=== PATIENT | female | born 1945 | race Caucasian/White ===

== ENCOUNTER 2019-04-18 02:09 | Inpatient (IN) | payer OTHER ==
[2019-04-18 02:31] LABS: PLATELET COUNT 259 10^3/uL (150-400)
--- NOTE | 2019-04-18 02:48 | EDPHY ---
H & P Stated Complaint: chest pain Time Seen by Provider: 04/18/19 02:12 HPI/ROS: HPI The patient presents with chest pain which is in her mid chest and feels like a burning sensation which began at about 4:00 p.m. Today while seated. Her symptoms came on slowly and have gotten progressively worse. She has been unable to sleep because of them. She states that her pain is worse whenever she eats something. She has had nausea without vomiting. She has not had any shortness of breath, dizziness, diaphoresis. She was started on clindamycin about 4 days ago for a dental infection and she believes that this has caused her heartburn. She does take Protonix 40 mg twice daily. She is brought in by ambulance and paramedics have given aspirin as well as 1 dose of nitroglycerin without any improvement in her symptoms. REVIEW OF SYSTEMS 10 systems were reviewed and negative with the exception of the elements mentioned in the history of present illness. PMHx: Type 1 diabetes, diastolic heart disease, CAD status post CABG on Plavix Soc Hx: Resides at [facility] PHYSICAL General Appearance: Alert, no distress Eyes: Pupils equal and round no pallor or injection ENT, Mouth: Mucous membranes moist Respiratory: There are no retractions, lungs are clear to auscultation Cardiovascular: Murmur present, Regular rate and rhythm Gastrointestinal: Abdomen is soft and non-tender, no masses, bowel sounds normal Neurological: A&O, moves all extremities Skin: Warm and dry, no rashes Musculoskeletal: Neck is supple non tender Extremities: Left BKA Psychiatric: Patient is oriented X 3, there is no agitation Source: Patient, EMS Exam Limitations: No limitations - Personal History Current Tetanus Diphtheria and Acellular Pertussis (TDAP): Yes - Medical/Surgical History Hx Chronic Respiratory Disease: Yes Hx Diabetes: Yes Hx Cardiac Disease: Yes Hx Renal Disease: No Hx Cirrhosis: No Hx Alcoholism: No Hx HIV/AIDS: No Hx Splenectomy or Spleen Trauma: No Other PMH: DM1, hyperparathyroidism, depression, chronic pain, hypohyroiism, hyperlipidemia, anxiety, heart disease, Diastolic heart failure, PVD, convulsions, Pulmonary HTN, - Social History Smoking Status: Never smoked Constitutional: Initial Vital Signs Temperature (C) 36.7 C 04/18/19 02:14 Heart Rate 94 04/18/19 02:14 Respiratory Rate 16 04/18/19 02:14 Blood Pressure 145/78 H 04/18/19 02:14 O2 Sat (%) 98 04/18/19 02:14 O2 Delivery Mode Nasal Cannula O2 (L/minute) 3 Allergies/Adverse Reactions: cilastatin sodium [From Primaxin] Allergy (Verified 04/18/19 02:14) ciprofloxacin Allergy (Verified 04/18/19 02:14) imipenem [From Primaxin] Allergy (Verified 04/18/19 02:14) metoclopramide Allergy (Verified 04/18/19 02:14) nitrofurantoin Allergy (Verified 04/18/19 02:14) oxycodone Allergy (Verified 04/18/19 02:14) Penicillins Allergy (Verified 04/18/19 02:14) Sulfonylureas Allergy (Verified 04/18/19 02:14) vancomycin Allergy (Verified 04/18/19 02:14) Home Medications: Medication Instructions Recorded ARIPiprazole [Abilify 5 mg (*)] 2.5 mg PO DAILY 04/18/19 Acetaminophen [Tylenol 325mg (*)] 650 mg PO DAILY PRN 04/18/19 Acetaminophen [Tylenol 325mg (*)] 650 mg PO TID 04/18/19 Albuterol [Proventil Inhaler HFA 2 puffs IH Q4 PRN 04/18/19 (*)] Aspirin [Aspirin 81mg (*)] 81 mg PO DAILY 04/18/19 Atorvastatin Calcium [Lipitor 40 40 mg PO HS 04/18/19 mg (*)] Bisacodyl [Dulcolax] 10 mg RC DAILY PRN 04/18/19 Clindamycin HCl [Clindamycin] 300 mg PO Q6HRS 04/18/19 Clopidogrel Bisulfate [Plavix (*)] 75 mg PO DAILY 04/18/19 Dextrose Oral Gel [Glucose Gel (*)] 15 gm PO BID PRN 04/18/19 Ergocalciferol [Vitamin D2 (*)] 50,000 unit PO FR 04/18/19 Furosemide [Lasix 80 MG (*)] 80 mg PO DAILY14 04/18/19 Furosemide [Lasix 80 MG (*)] 120 mg PO DAILY 04/18/19 Glucagon,Human Recombinant 1 mg IJ AD PRN 04/18/19 [Glucagon Emergency Kit] Herbals/Supplements -Info Only 1 ea PO DAILY 04/18/19 Insulin Glargine [Lantus] 3 unit SC DAILY 04/18/19 Insulin Glargine [Lantus] 7 unit SC HS 04/18/19 Insulin Lispro [Humalog] 0 unit SQ TIDMEAL 04/18/19 Isosorbide Mononitrate [Isosorbide 120 mg PO DAILY 04/18/19 Mononitrate ER] LORazepam [Ativan (*)] 0.25 mg PO BID 04/18/19 LORazepam [Ativan (*)] 0.5 mg PO DAILY PRN 04/18/19 Levothyroxine [Synthroid 88 mcg 88 mcg PO DAILY06 04/18/19 (*)] Lidocaine 5% [Lidocaine 5% Oint] 1 shoaib TP DAILY PRN 04/18/19 Magnesium Citrate [Magnesium 148 ml PO DAILY PRN 04/18/19 Citrate 300 ml (*)] Magnesium Hydroxide [Milk of 30 ml PO DAILY PRN 04/18/19 Magnesia] Metoprolol Tartrate [Lopressor 25 12.5 mg PO BID 04/18/19 mg (*)] Multivitamins W-Minerals [Thera M 1 each PO DAILY 04/18/19 Plus Tablet (*)] Nitroglycerin [Nitrostat 0.4 mg 0.4 mg SL Q5M PRN 04/18/19 (*)] Ondansetron HCl [Zofran] 4 mg PO Q6HRS PRN 04/18/19 Oxymetazoline HCl [Afrin Nasal 2 sprays [place] MWF 04/18/19 [place]] Pantoprazole Sodium [Protonix 40mg 40 mg PO BID 04/18/19 (*)] Polyethylene Glycol 3350 [Miralax 17 gm PO BID 04/18/19 17 gm (*)] Polyethylene Glycol 3350 [Miralax 17 gm PO DAILY PRN 04/18/19 17 gm (*)] Potassium Cl [Klor-Con 20 meq (*)] 30 meq PO BID 04/18/19 Sennosides [Senna Lax] 17.2 mg PO BID 04/18/19 Simethicone [Gas Relief] 80 mg PO TID PRN 04/18/19 Tamsulosin HCl [Flomax 0.4 MG (*)] 0.4 mg PO HS 04/18/19 Tears/Dextran 70/Hypromellose 1 drop EACHEYE BID 04/18/19 [Natural Balance Tears (*)] Tears/Dextran 70/Hypromellose 1 drop EACHEYE QID PRN 04/18/19 [Natural Balance Tears (*)] Venlafaxine Xr [Effexor Xr 75MG 225 mg PO DAILY 04/18/19 (*)] morphINE SR [MS Contin/Oramorph SR 30 mg PO BID 04/18/19 30 mg (*)] oxyCODONE IR [Oxycodone Ir (*)] 5 mg PO QID 04/18/19 traZODone [traZODONE 50MG (*)] 50 mg PO HS 04/18/19 Medical Decision Making - Diagnostics EKG Interpretation: EKG: Complete interpretation has been separately recorded in the [facility] archive. Summary impression: No ST segment change Imaging Results: Imaging Impressions Chest X-Ray 04/18/19 02:13 Impression: 1. Bilateral lower lobe atelectasis versus pneumonia. 2. Chronic bronchitis/airways disease. Chest x-ray single view shows scarring at bilateral lung bases, interpreted by me, radiology interpretation is pending. Imaging: I viewed and interpreted images myself Differential Diagnosis: This is a 73-year-old female with history of type 1 diabetes, CAD status post CABG, diastolic heart disease who presents brought in by ambulance from her shelter facility for chest pain since about 4:00 p.m. Yesterday, worse with meals. Here, vital signs are normal, she is somewhat uncomfortable appearing. EKG and initial troponin are unremarkable. Chest x-ray demonstrates scarring at her lung bases, unclear if this is new versus subacute. Remainder of labs are normal. She did not improved with morphine. I gave her a GI cocktail. This did not improve her symptoms much either. She believes her symptoms began because of use of clindamycin. 4:11 a.m.- I consulted with [facility] and spoke with Balbina the nurse there. She recommends no transfer at this time given the patient has some ongoing chest pain. The patient will be admitted here. I consulted with Dr. Kan who accepted the patient for admission. Differential diagnosis includes ACS, gastritis, GERD, pneumonia. Given that her HEART score is greater than 3, I do think she should be admitted for observation, serial troponins, possible provocative testing. - Data Points Laboratory Results: Laboratory Results 04/18/19 02:05 04/18/19 02:05 Medications Given: Artificial Tears (Natural Balance Tears) 1 drop EACHEYE BID [facility] Stop: 10/15/19 20:59 Last Admin: 04/18/19 20:33 Dose: 1 drop Atorvastatin Calcium (Lipitor) 40 mg PO HS [facility] Stop: 10/15/19 20:59 Last Admin: 04/18/19 20:23 Dose: 40 mg Clindamycin (Clindamycin) 300 mg PO Q6HRS [facility] Stop: 04/19/19 16:59 Last Admin: 04/18/19 17:21 Dose: 300 mg Enoxaparin Sodium (Lovenox) 40 mg SC DAILY [facility] Stop: 10/15/19 12:59 Last Admin: 04/18/19 13:34 Dose: 40 mg Famotidine/Sodium Chloride (Pepcid 20 Mg (Premix)) 50 mls @ 200 mls/hr IV Q12 [facility] Stop: 10/15/19 16:29 Last Admin: 04/18/19 17:22 Dose: 50 mls Insulin Glargine (Lantus Syringe) 7 units SC HS [facility] Stop: 10/15/19 20:59 Last Admin: 04/18/19 20:31 Dose: 7 units Insulin Human Lispro (Humalog Lispro) 0 unit SC ACHS [facility] PRN Reason: Protocol Stop: 10/15/19 11:29 Last Admin: 04/18/19 18:18 Dose: 5 units Lorazepam (Ativan) 0.25 mg PO BID [facility] Stop: 10/15/19 20:59 Last Admin: 04/18/19 20:24 Dose: 0.25 mg Metoprolol Tartrate (Lopressor) 25 mg PO BID [facility] Stop: 10/15/19 20:59 Last Admin: 04/18/19 20:25 Dose: 25 mg Morphine Sulfate (Morphine) 1 - 2 mg IVP Q1HR PRN PRN Reason: Chest Pain Stop: 04/28/19 04:26 Last Admin: 04/18/19 15:33 Dose: 2 mg Morphine Sulfate (Ms Contin/Oramorph Sr) 30 mg PO BID [facility] Stop: 04/28/19 20:59 Last Admin: 04/18/19 20:25 Dose: 30 mg Ondansetron HCl (Zofran Odt) 4 mg PO Q4HRS PRN PRN Reason: Nausea/Vomiting, Use 1st Stop: 10/15/19 04:26 Last Admin: 04/18/19 08:32 Dose: 4 mg Oxycodone HCl (Oxycodone Ir) 5 mg PO QID [facility] Stop: 04/28/19 13:29 Last Admin: 04/18/19 20:30 Dose: 5 mg Polyethylene Glycol (Miralax) 17 gm PO BID [facility] Stop: 10/15/19 20:59 Last Admin: 04/18/19 20:25 Dose: 17 gm Potassium Chloride (Klor-Con) 30 meq PO BID [facility] Stop: 10/15/19 20:59 Last Admin: 04/18/19 20:26 Dose: 30 meq Senna (Senokot) 1 tab PO BID [facility] Stop: 10/15/19 20:59 Last Admin: 04/18/19 20:30 Dose: 1 tab Tamsulosin HCl (Flomax) 0.4 mg PO HS [facility] Stop: 10/15/19 20:59 Last Admin: 04/18/19 20:30 Dose: 0.4 mg Trazodone HCl (Trazodone) 50 mg PO HS [facility] Stop: 10/15/19 20:59 Last Admin: 04/18/19 20:30 Dose: 50 mg Discontinued Medications Al Hydroxide/Mg Hydroxide (Maalox Susp) 30 ml PO ONCE ONE Stop: 04/18/19 03:13 Last Admin: 04/18/19 03:56 Dose: 30 ml Furosemide (Lasix Injection) 80 mg IVP ONCE ONE Stop: 04/18/19 11:46 Last Admin: 04/18/19 12:25 Dose: 80 mg Hyoscyamine Sulfate (Levsin, Hyomax-Sl) 0.25 mg PO ONCE ONE Stop: 04/18/19 03:13 Last Admin: 04/18/19 03:56 Dose: 0.25 mg Famotidine/Sodium Chloride (Pepcid 20 Mg (Premix)) 50 mls @ 200 mls/hr IV EDNOW ONE Stop: 04/18/19 04:30 Last Admin: 04/18/19 04:37 Dose: 50 mls Insulin Human Regular (Humulin R) 10 unit SC ONCE ONE Stop: 04/18/19 20:02 Last Admin: 04/18/19 20:31 Dose: 10 units Lidocaine (Lidocaine 2% Viscous) 15 ml PO ONCE ONE Stop: 04/18/19 03:13 Last Admin: 04/18/19 03:56 Dose: 15 ml Morphine Sulfate (Morphine) 2 mg IVP EDNOW ONE Stop: 04/18/19 02:13 Last Admin: 04/18/19 02:49 Dose: 2 mg Sucralfate (Carafate Suspension) 1 gm PO EDNOW ONE Stop: 04/18/19 04:17 Last Admin: 04/18/19 04:57 Dose: 1 gm Point of Care Test Results: Chemistry 04/18/19 02:22 POC Troponin I 0.04 ng/mL ng/mL (0.00-0.08) Departure - Departure Disposition: [facility] Inpatient Acute Clinical Impression: Chest pain Qualifiers: Chest pain type: other chest pain Qualified Code(s): R07.89 - Other chest pain ; R07.8 - Other chest pain CAD (coronary artery disease) Qualifiers: Coronary Disease-Associated Artery/Lesion type: unspecified vessel or lesion type Associated angina: with unspecified angina Diabetes Qualifiers: Diabetes mellitus type: type 1 Diabetes mellitus complication status: with unspecified complications Qualified Code(s): E10.8 - Type 1 diabetes mellitus with unspecified complications Condition: Fair
[2019-04-18] MEDS ORDERED: MAG HYDROX/AL HYDROX/SIMETH 30 ML UDCUP PO ONE (03:12)
[2019-04-18] MEDS ORDERED: HYOSCYAMINE SULFATE 0.125 MG TAB PO ONE (03:12)
[2019-04-18] MEDS ORDERED: LIDOCAINE 2% VISCOUS 15 ML UDCUP PO ONE (03:12)
[2019-04-18] MEDS ORDERED: SUCRALFATE 1 GM/10 ML UDCUP PO ONE (04:16)
[2019-04-18] MEDS ORDERED: FAMOTIDINE 20 MG/NACL 50 ML IV ONE (04:16)
[2019-04-18] MEDS ORDERED: ONDANSETRON DISINTEGRATING 4 MG TAB PO PRN (04:27)
[2019-04-18] MEDS ORDERED: ACETAMINOPHEN 325 MG TAB PO PRN (04:27)
[2019-04-18] MEDS ORDERED: ONDANSETRON 4 MG/2 ML VIAL IVP PRN (04:27)
[2019-04-18] MEDS ORDERED: NITROGLYCERIN 0.4 MG BTL SL PRN (04:32)
--- NOTE | 2019-04-18 07:18 | PDGENHP ---
History and Physical - Chief Complaint Chest pain - History of Present Illness Source-patient provides history is fair historian EMR was reviewed and case discussed with ED provider. HPI-this a very pleasant 73-year-old female with past medical history significant for congenital heart disease, diastolic CHF, PVD, pulmonary hypertension, chronic hypoxic respiratory failure with O2 requirement 3 liters/ minute, chronic pain, dm 1, HLD, CAD, depression, CKD who presents emergency department today with complaints of chest pain. Patient reports approximately 4 :00 p.m. While she was sitting patient started to feel a progressively worsening substernal burning type pain. It was worse with eating. Patient also notes some associated diaphoresis and nausea without vomiting at onset of her symptoms. She denies any radiating pain to her neck or arm. She did recently start clindamycin for dental infection she is currently on Protonix 40 mg twice daily. Patient thought it was worsening reflux due to the antibiotic. On patient was unable to sleep due to the "worst heartburn I have ever had. " Patient was subsequently brought by EMS and received aspirin and nitroglycerin on route without significant improvement in her symptoms. Since that time patient had a EKG and troponin which were nondiagnostic. She also received GI cocktail sucralfate with some minimal improvement in her symptoms. Patient has chronic hypoxic respiratory failure she denies that this is any worse from baseline. She does have a history of angina but states that normally she will get pain radiating into her temples which she did not have yesterday. But given that her heartburn type symptoms were not improving patient was concerned and presented to the ED. She denies any orthopnea or PND. She does not have any report of lower extremity edema worse than normal. Patient does note that she had recently undergone a CT of her abdomen due to distension she states there is "fluid" but she is unclear what the cause is. There are no plans for any intervention or treatment by her report but she cannot recall the details.. History Information - Allergies/Home Medication List Allergies/Adverse Reactions: cilastatin sodium [From Primaxin] Allergy (Verified 04/18/19 02:14) ciprofloxacin Allergy (Verified 04/18/19 02:14) imipenem [From Primaxin] Allergy (Verified 04/18/19 02:14) metoclopramide Allergy (Verified 04/18/19 02:14) nitrofurantoin Allergy (Verified 04/18/19 02:14) oxycodone Allergy (Verified 04/18/19 02:14) Penicillins Allergy (Verified 04/18/19 02:14) Sulfonylureas Allergy (Verified 04/18/19 02:14) vancomycin Allergy (Verified 04/18/19 02:14) Home Medications: ARIPiprazole 04/18/19 [Last Taken Unknown] Acidophilus 04/18/19 [Last Taken Unknown] Afrin Nasal [place] 04/18/19 [Last Taken Unknown] Albuterol 04/18/19 [Last Taken Unknown] Aspirin 81mg (*) 04/18/19 [Last Taken Unknown] Ativan 04/18/19 [Last Taken Unknown] Bisacodyl 04/18/19 [Last Taken Unknown] Clindamycin 04/18/19 [Last Taken Unknown] Effexor Xr 04/18/19 [Last Taken Unknown] Flomax 04/18/19 [Last Taken Unknown] Humalog 04/18/19 [Last Taken Unknown] Imdur 30 mg (*) 04/18/19 [Last Taken Unknown] Klor-Con 04/18/19 [Last Taken Unknown] Lantus 04/18/19 [Last Taken Unknown] Lasix 04/18/19 [Last Taken Unknown] Lipitor 04/18/19 [Last Taken Unknown] Magnesium 04/18/19 [Last Taken Unknown] Metoprolol Tartrate 04/18/19 [Last Taken Unknown] Milk of Magnesia 04/18/19 [Last Taken Unknown] Miralax 17 gm (*) 04/18/19 [Last Taken Unknown] Nitroglycerin 04/18/19 [Last Taken Unknown] Ondansetron 04/18/19 [Last Taken Unknown] Oxycodone HCl 04/18/19 [Last Taken Unknown] Plavix 04/18/19 [Last Taken Unknown] Protonix 04/18/19 [Last Taken Unknown] Senna 04/18/19 [Last Taken Unknown] Simethicone 04/18/19 [Last Taken Unknown] Synthroid 04/18/19 [Last Taken Unknown] Tylenol 04/18/19 [Last Taken Unknown] morphINE 04/18/19 [Last Taken Unknown] traZODone 04/18/19 [Last Taken Unknown] I have personally reviewed and updated: family history, medical history, social history, surgical history - Past Medical History Additional medical history: CAD, diastolic CHF, PVD, CKD, congenital heart disease with multiple cardiac surgeries, HLD, dm 1, hyperparathyroidism, depression, chronic pain, seizures, pulmonary hypertension, chronic hypoxic respiratory failure with 3 liters/minute continues oxygen dependence. Wheelchair-bound status post left BKA. - Surgical History Additional surgical history: Left BKA. Multiple cardiac surgeries - Family History Additional family history: Mother with history CHF. Father- due to old age. - Social History Smoking Status: Never smoked Alcohol Use: Occasionally (Patient reports having a glass of wine occasionally with dinner.) Drug Use: None Additional social history: Patient lives [facility]. She is wheelchair dependent. Cor status-full. Review of Systems Review of Systems: ROS: 10pt was reviewed & negative except for what was stated in HPI & below Constitutional: Denies: chills, fever Cardiac: Reports: chest pain. Denies: edema, lightheadedness Respiratory: Reports: shortness of breath (Chronic at baseline) Physical Exam Physical Exam: Selected Entries 04/18/19 02:14 Blood Pressure Automatic Method Heart Rate 94 Respiratory 16 Rate O2 Sat (%) 98 Temperature (C) 36.7 C Blood Pressure 145/78 H Mean Arterial 100 Pressure (MAP) O2 Delivery Room Air Mode Temperature Oral Source Temp Pulse Resp BP Pulse Ox 36.8 C 92 15 125/67 H 98 04/18/19 05:30 04/18/19 05:30 04/18/19 05:30 04/18/19 05:30 04/18/19 05:30 O2 (L/minute) 3 Constitutional: no apparent distress, chronically ill appearing, other (NAD. Pleasant frail appearing female is lying in bed awake.) Eyes: PERRL, anicteric sclera, EOMI, No scleral injection Ears, Nose, Mouth, Throat: dry mucous membranes, No poor dentition Cardiovascular: regular rate and rhythym, no murmur, rub, or gallop, pulses symmetric bilaterally, No edema Peripheral Pulses: 1+: dorsalis-pedis (R) Respiratory: no respiratory distress, reduced air movement, inspiratory crackles (Occasional bibasilar crackle.), No respiratory distress Gastrointestinal: normoactive bowel sounds, soft, non-tender abdomen, distension (Distended but), No guarding, No rebound Genitourinary: no bladder tenderness, No valladares in urethra Skin: warm, normal color, no rashes or abrasions Musculoskeletal: generalized weakness, other (Patient is able to sit up independently. Kyphotic. Left well healed BKA.) Neurologic: AAOx3, sensation intact bilaterally, other (Grossly nonfocal.), No facial droop Psychiatric: interacting appropriately, not encephalopathic, thought process linear, anxious, other (Patient is pleasant and cooperative.) Lab Data & Imaging Review 04/18/19 02:05 04/18/19 02:05 WBC 9.95 10^3/uL (3.80-9.50) H 04/18/19 02:05 RBC 3.98 10^6/uL (4.18-5.33) L 04/18/19 02:05 Hgb 10.4 g/dL (12.6-16.3) L 04/18/19 02:05 Hct 34.8 % (38.0-47.0) L 04/18/19 02:05 MCV 87.4 fL (81.5-99.8) 04/18/19 02:05 MCH 26.1 pg (27.9-34.1) L 04/18/19 02:05 MCHC 29.9 g/dL (32.4-36.7) L 04/18/19 02:05 RDW 14.5 % (11.5-15.2) 04/18/19 02:05 Plt Count 259 10^3/uL (150-400) 04/18/19 02:05 MPV 11.1 fL (8.7-11.7) 04/18/19 02:05 Neut % (Auto) 81.2 % (39.3-74.2) H 04/18/19 02:05 Lymph % (Auto) 9.3 % (15.0-45.0) L 04/18/19 02:05 [place] % (Auto) 5.3 % (4.5-13.0) 04/18/19 02:05 Eos % (Auto) 3.4 % (0.6-7.6) 04/18/19 02:05 Baso % (Auto) 0.4 % (0.3-1.7) 04/18/19 02:05 Nucleat RBC Rel Count 0.0 % (0.0-0.2) 04/18/19 02:05 Absolute Neuts (auto) 8.07 10^3/uL (1.70-6.50) H 04/18/19 02:05 Absolute Lymphs (auto) 0.93 10^3/uL (1.00-3.00) L 04/18/19 02:05 Absolute Monos (auto) 0.53 10^3/uL (0.30-0.80) 04/18/19 02:05 Absolute Eos (auto) 0.34 10^3/uL (0.03-0.40) 04/18/19 02:05 Absolute Basos (auto) 0.04 10^3/uL (0.02-0.10) 04/18/19 02:05 Absolute Nucleated RBC 0.00 10^3/uL (0-0.01) 04/18/19 02:05 Immature Gran % 0.4 % (0.0-1.1) 04/18/19 02:05 Immature Gran # 0.04 10^3/uL (0.00-0.10) 04/18/19 02:05 Sodium 139 mEq/L (135-145) 04/18/19 02:05 Potassium 4.9 mEq/L (3.5-5.2) 04/18/19 02:05 Chloride 97 mEq/L (97-110) 04/18/19 02:05 Carbon Dioxide 34 mEq/l (22-31) H 04/18/19 02:05 Anion Gap 8 mEq/L (6-14) 04/18/19 02:05 BUN 29 mg/dL (7-23) H 04/18/19 02:05 Creatinine 1.0 mg/dL (0.6-1.0) 04/18/19 02:05 Estimated GFR 55 04/18/19 02:05 Glucose 178 mg/dL (70-100) H 04/18/19 02:05 Calcium 9.5 mg/dL (8.5-10.4) 04/18/19 02:05 Total Bilirubin 0.7 mg/dL (0.1-1.4) 04/18/19 02:05 Conjugated Bilirubin 0.1 mg/dL (0.0-0.5) 04/18/19 02:05 Unconjugated Bilirubin 0.6 mg/dL (0.0-1.1) 04/18/19 02:05 AST 29 IU/L (14-46) 04/18/19 02:05 ALT 34 IU/L (9-52) 04/18/19 02:05 Alkaline Phosphatase 132 IU/L (38-126) H 04/18/19 02:05 POC Troponin I 0.04 ng/mL (0.00-0.08) 04/18/19 02:22 Total Protein 7.2 g/dL (6.3-8.2) 04/18/19 02:05 Albumin 4.1 g/dL (3.5-5.0) 04/18/19 02:05 Lipase 71 IU/L (23-300) 04/18/19 02:05 Imaging Review: Chest x-ray-image reviewed myself report is still pending. Pulmonary edema with diminished lung volumes. Sternotomy wires. Visualized and Interpreted Chest x-ray results: Yes EKG additional interpertation: Normal sinus rhythm in the 80s. QTC is 449. No acute ST changes. Assessment & Plan Assessment: this a very pleasant 73-year-old female with past medical history significant for congenital heart disease, diastolic CHF, PVD, pulmonary hypertension, chronic hypoxic respiratory failure with O2 requirement 3 liters/minute, chronic pain, dm 1, HLD, CAD, depression, CKD who presents emergency department today with complaints of chest pain. # chest pain - suspect GI component versus less likely ACS. Patient's HEART score however of 4. Additionally patient notes atypical heartburn symptoms as they are more severe than she is at for experience before. She does not report any of her typical anginal type symptoms she has experienced previously. Will plan to trend cardiac enzymes and anticipating this is negative proceed with a nuclear stress test. Patient received aspirin prior to arrival in the ED. Nitroglycerin p.r.n.. # reflux - patient currently on PPI 40 mg twice daily. She is given a GI cocktail, sucralfate without significant change in her symptoms. Patient notes her symptoms did seem to start worsening with initiation of clindamycin for dental infection. Plan for stress test as noted above. Chronic medical issues # dm 1-patient with history of brittle diabetes. Updated med rec with dosing is not yet available. Will start with low-dose sliding scale at this time. Patient currently NPO for stress testing. Monitor glucose. # benign essential HTN - blood pressure this time are acceptable. Resume metoprolol following stress test. # CAD - resume Plavix. Nitro p.r.n. Patient on Imdur, metoprolol and Lipitor. # hypothyroidism, resume Synthroid # chronic pain continue Oxy and morphine per home dosing. Patient mentation at this time is appropriate. # chronic hypoxic respiratory failure-continue supplemental oxygen 3 liters/ minute. # Anemia - previous iron studies suggesting anemia of chronic disease. Patient without any evidence of active bleeding. H&H is stable compared to 2016. FEN - ice chips and sips of water p.r.n. Saline lock IV. Monitor electrolytes replace if needed. Following stress test advance diet to cardiac low-sodium. PPX-SCDs if tolerated to the right leg. Holding anticoagulation anticipating short hospital stay. Cor status-full Disposition-patient admitted to observation status on PCU for close cardiac monitoring. Pending results of stress test at this point anticipating a less than 2 midnight stay.
[2019-04-18] MEDS ORDERED: D50W 25 GM/50 ML SYR IVP PRN (07:37)
[2019-04-18] MEDS ORDERED: FUROSEMIDE 100 MG/10 ML VIAL IVP ONE (11:45)
[2019-04-18] MEDS: INSULIN LISPRO 100 UNIT/ML SC SCH ×3 (12:25→22:34)
[2019-04-18] MEDS ORDERED: SIMETHICONE 80 MG TAB CHEW PO PRN (12:31)
[2019-04-18] MEDS ORDERED: ALBUTEROL 60 PUFFS/8 GM MDI IH PRN (12:31)
[2019-04-18] MEDS ORDERED: LORazepam 0.5 MG TAB PO PRN (12:31)
[2019-04-18] MEDS ORDERED: Lidocaine 5% [Lidocaine 5% Oint] 1 APP TP PRN (12:31)
[2019-04-18] MEDS ORDERED: TEARS/DEXTRAN 70/HYPROMELLOSE 15 ML OPHT.BTL EACHEYE PRN (12:31)
[2019-04-18] MEDS ORDERED: MAGNESIUM CITRATE 300 ML BOTTLE PO PRN (12:31)
--- NOTE | 2019-04-18 12:49 | HOSPPROG ---
Hospitalist Progress Note Assessment/Plan: 73-year-old female with past medical history significant for congenital heart disease, diastolic CHF, PVD, pulmonary hypertension, chronic hypoxic respiratory failure with O2 requirement 3 liters/minute, chronic pain, dm 1, HLD , CAD (previous stenting), depression, CKD who was admitted with chest pain, jaw pain, and rastafarian pain. She has a hx of CAD and reports that her current jaw and rastafarian symptoms are similar to her last SC. Work up thus far including trop and EKG have been unremarkable to ischemia. She was scheduled for a Zelda scan this morning but has refuse it pending Cardiology w/u #Chest pain, Jaw and [place] Pain -cannot r/o angina given her sx's are similar to previous SC. -Cards will see her today. Given her sx's she may benefit from a stress test vs cardiac cath. A repeat trop will be scheduled to assist with the decision. -She was NPO for stress test. Will wait for repeat trop and cardial librado as she is having sx's now before decision on diet #GERD and Reflux -Minimal improvement with GI cocktail -this is likely contributing to her chest pain but not her jaw and rastafarian pain. -cont PPI -Some component of this may be due to the Clindamycin that she is taking for dental infection #Dental Infection: for now continue with Clindamycin. May need to switch her abx #DM 1: -home insulin -ISS -Check A1C #CHF-Diastolic per records -Very high outpatient Lasix requirement. -She appears volume overloaded -Will provide a one time dose of Lasix. Await Card reccs -Will obtain TTE #Chronic Respiratory Failure, at baseline which is 3 L 13/06 #HTN: -home meds -I have scheduled her BB to restart this p.m., pending Card evaluation # hypothyroidism, resume Synthroid # chronic pain continue Oxy and morphine per home dosing. # Anemia - previous iron studies suggesting anemia of chronic disease. Patient without any evidence of active bleeding. H&H is stable compared to 2016. FEN - ice chips and sips of water p.r.n. Saline lock IV. Monitor electrolytes replace if needed. Following stress test advance diet to cardiac low-sodium. PPX-Lovenox for DVT proph Cor status-full Disposition-observation Subjective: refusing stress test. + chest pain, + jaw pain Objective: Vital Signs Temp Pulse Resp BP Pulse Ox 36.9 C 83 20 136/67 H 99 04/18/19 11:43 04/18/19 11:43 04/18/19 11:43 04/18/19 11:43 04/18/19 11:43 04/17/19 04/18/19 04/19/19 05:59 05:59 05:59 Intake Total 425 Output Total 500 Balance 425 -500 - Physical Exam Constitutional: no apparent distress, chronically ill appearing Eyes: PERRL Ears, Nose, Mouth, Throat: moist mucous membranes, hearing normal Cardiovascular: regular rate and rhythym, No edema Respiratory: no respiratory distress, no rales or rhonchi, clear to auscultation Gastrointestinal: normoactive bowel sounds, No other Skin: warm Musculoskeletal: generalized weakness Neurologic: AAOx3 Psychiatric: interacting appropriately, not anxious, not encephalopathic Lymph, Heme, Immunologic: No petechiae ICD10 Worksheet Patient Problems: Problems Problem Status Onset C. difficile diarrhea Acute 02/23/16 Hyperglycemia Acute Pneumonia of both lower lobes Acute
[2019-04-18] MEDS: ENOXAPARIN 40 MG/0.4 ML SYR SC SCH (13:34)
[2019-04-18] MEDS: oxyCODONE IR 5 MG TAB PO SCH ×3 (13:34→20:30)
--- NOTE | 2019-04-18 14:07 | ASMTLACE ---
DEB Comorbidities - select Answers: Congestive heart failure all that apply Coronary Artery Disease Diabetes (uncontrolled or controlled) Mild liver or renal disease Opioid dependence / Chronic pain Peripheral vascular disease Other Notes: HLD # of Emergency department Answers: 1-2 visits in the last 6 months Social determinants Answers: Mental health diagnosis (anxiety, depression, pers onality disorders, etc.) Score: 17 Date Signed: 04/18/2019 02:06 PM Electronically Signed By:Bekah Valdivia
--- NOTE | 2019-04-18 14:18 | ASMTCASEMG ---
Living Arrangements What is your living Answers: Caregiver with Another arrangement? Who do you live with? Type Of Residence What kind of residence do Answers: Long-Term Facility you live in? Type of Residence Facility Name Notes: [facility] Stairs in Home Answers: No Environment Case Management Evaluation Functional: ADL / IADL Answers: Mobility Issues Performance Deficits Due to: Discharge Plan Comments Coordination Status Comments Notes: Pt was admitted through the ED this morning for chest pain. She has a history of CAD and leg amputation. She describes a burning in her throat and chest "similar to heartburn". She has a dental infection for which she is taking antibiotics. CM met with pt in her room today. She lives at [facility]. CM spoke with Tal there. Further testing to be completed. Therapies are pending. ANH D/C plan: TBD, likely return to [facility] Date Signed: 04/18/2019 02:17 PM Electronically Signed By:Georgina Kitchen
--- NOTE | 2019-04-18 15:02 | ECHO ---
[email or web address] [address] [address] Main: [phone] Echocardiography Examination Transthoracic Name: LYLE RINALDI MR#: [id number] Study Date: 04/18/2019 Study Time: 01:39 PM Date of : 1945 Age: 73 year(s) Height: 165.1 cm (65 in.) Weight: 58.06 kg (128 lb.) BSA: 1.64 m2 Gender: Female Examination: Echo Contrast: Image Quality: Rhythm: Tachycardia Heart Rate: 98 bpm BP: 135 mmHg/67 mmHg Indication: Chest Pain Procedure Staff Referring Physician: Assembly Adjuster: Jason Baires RDCS Reading Physician: Carlos Humphreys MD Requesting Provider: Ordering Physician: Cesar Cruz Indication: Chest Pain Measurements Chambers AV/MV Label Value Normal Value Label Value Normal Value LVOT Vmax 1.65 m/s (0.7m/s - 1.1m/s) AR (ERO) 0.08 cm2 LVOTd 1.9 cm (1.8cm - 2cm) AR PHT 0.45 s LVOT VTI 35.7 cm (18cm - 22cm) AR PHT 448 ms LVDd, 2D 3.7 cm (3.9cm - 5.3cm) AR PISA Radius 0.4 cm LVDs, 2D 2.4 cm (2.1cm - 4cm) AR Reg. Fraction 12 % IVSd, 2D 0.7 cm (0.6cm - 1.1cm) AR Reg. Volume 12 ml LVPWd, 2D 0.9 cm AR Vena contracta 0.3 cm LVEF, 2D 67 % (54% - 74%) AR Vmax 4.09 m/s LVOT PGmean 7 mmHg AR VTI 152 cm LVOT Vmean 1.22 m/s AV PGmax 13 mmHg LA Volume, BP 72 ml (22ml - 52ml) AV PGmean 7 mmHg LADs, 2D 3.1 cm (2.7cm - 3.8cm) AV Vmax 1.78 m/s LAESV index, BP 43.9 ml/m2 LUIS MIGUEL (Vmax) 2.6 cm2 Additional Vessels LUIS MIGUEL (VTI) 2.6 cm2 Label Value Normal Value MV E Vmax 1.08 m/s AoRoot, MM 2.6 cm (2.2cm - 3.7cm) MV A Vmax 1.18 m/s MV E/A 0.92 MV E' septal 0.04 m/s MV VTI 36.8 cm Patient: LYLE RINALDI Study Date: 04/18/2019 Page 1 of 2 01:39 PM MVA D (continuity eq.) 2.8 cm2 MV PGmax 9 mmHg MV PGmean 4 mmHg MV E' lateral 0.06 m/s MV E/E' mean 21.6 MV E' mean 0.05 m/s Conclusions Technically limited study with poor acoustic windows. Hyperdynamic left ventricular systolic function with an ejection fraction above 70%. Normal wall motion. Grade 1 diastolic dysfunction with normal left atrial pressures. Trileaflet aortic valve with mild sclerosis. [id number] aortic regurgitation. Mild mitral annular calcification. No significant mitral stenosis or regurgitation. Normal-appearing tricuspid valve. Cannot estimate RVSP. No pericardial effusion. Findings Left Ventricle: Off axis views were obtained due to breast implants.. Left ventricle is normal in size. Left ventricle wall thickness is normal. Global hypokinesis. Grade I Diastolic Dysfunction. Right Ventricle: Normal size right ventricle. Left Atrium: The left atrium is moderately to severely dilated. Right Atrium: The right atrium is mildly dilated. Mitral Valve: No significant mitral regurgitation. There is mild mitral calcification. Aortic Valve: Mild to moderate aortic regurgitation is present. There is no aortic stenosis. Aortic leaflets exhibit mild calcification. The aortic valve is trileaflet. Tricuspid Valve: Tricuspid valve leaflets are structurally normal. No significant tricuspid regurgitation. Pulmonic Valve: No significant pulmonic valve regurgitation is evident. Aorta: The aorta is normal. The aortic root size in M-mode measures 2.6 cm. Aorta Measurements AoRoot, MM is 2.6 cm. Pericardium: No pericardial effusion. Exam Details Procedure Ordered: Echo (No Signature Object) Patient: LYLE RINALDI Study Date: 04/18/2019 Page 2 of 2 01:39 PM [id number]
--- NOTE | 2019-04-18 16:05 | PDCARCONS ---
Cardiology Consult Reason for Consult: Chest pain, known CAD. Chief Complaint: Chest pain. Requesting Physician: Dr. Luigi Anderson. History of Present Illness: This is a 73-year-old female seen in consultation on the progressive care unit. She has longstanding (greater than 60 years) type 1 diabetes mellitus and known coronary artery disease. Apparently, in 2004 she suffered a myocardial infarction and underwent coronary artery bypass graft surgery. Per the available records she has a QUIROZ to the distal LAD, a saphenous vein graft to the proximal LAD and a saphenous vein graft to the right coronary artery. Historically, she has had a normal ejection fraction with no prior history of congestive heart failure or arrhythmia. Additionally she has known peripheral vascular disease. Apparently she developed an infection in her left lower extremity and has undergone a left BKA. Additionally, she has had a prior right fem-pop bypass. Additional risk factors include hyperlipidemia. She is typically followed by Dr.Irene Maria at [facility]. Typically she has been very stable. She has had problems with bilateral lower extremity edema requiring high-dose Lasix. Additionally, she takes long acting nitrates which have been effective in controlling chest discomfort. She was admitted in the early hours of this morning following a 12 hr episode of what she describes as her angina. She states that she developed a sensation of bilateral temporal pain. This has been associated with jaw discomfort. With this she had mild nausea and very mild diaphoresis without shortness of breath. She notes no chest discomfort. She also denies orthopnea or PND. Symptoms continued for 12 hr. She was having active discomfort on arrival to the emergency department here. On arrival her vital signs were stable and her ECG indicated normal sinus rhythm with no ST or T changes. Initial troponin was noted to be negative. She was admitted and medically stabilized and currently states that she is nearly completely pain-free. She notes that she recently was treated with antibiotics for a dental infection. She thinks that because of the antibiotic she has developed worsening heartburn. This has been associated with nausea without emesis. She is nearly completely sedentary because of her left BKA. She is wheelchair- bound. She notes no palpitations. She has a chronic cough without fever, chills or sweats. History Information - Allergies/Home Medication List Allergies/Adverse Reactions: cilastatin sodium [From Primaxin] Allergy (Verified 04/18/19 02:14) ciprofloxacin Allergy (Verified 04/18/19 02:14) imipenem [From Primaxin] Allergy (Verified 04/18/19 02:14) metoclopramide Allergy (Verified 04/18/19 02:14) nitrofurantoin Allergy (Verified 04/18/19 02:14) oxycodone Allergy (Verified 04/18/19 02:14) Penicillins Allergy (Verified 04/18/19 02:14) Sulfonylureas Allergy (Verified 04/18/19 02:14) vancomycin Allergy (Verified 04/18/19 02:14) Home Medications: ARIPiprazole [Abilify 5 mg (*)] 2.5 mg PO DAILY 04/18/19 [Last Taken Unknown] Acetaminophen [Tylenol 325mg (*)] 650 mg PO DAILY PRN 04/18/19 [Last Taken Unknown] Acetaminophen [Tylenol 325mg (*)] 650 mg PO TID 04/18/19 [Last Taken Unknown] Albuterol [Proventil Inhaler HFA (*)] 2 puffs IH Q4 PRN 04/18/19 [Last Taken Unknown] Aspirin [Aspirin 81mg (*)] 81 mg PO DAILY 04/18/19 [Last Taken Unknown] Atorvastatin Calcium [Lipitor 40 mg (*)] 40 mg PO HS 04/18/19 [Last Taken Unknown] Bisacodyl [Dulcolax] 10 mg RC DAILY PRN 04/18/19 [Last Taken Unknown] Clindamycin HCl [Clindamycin] 300 mg PO Q6HRS 04/18/19 [Last Taken Unknown] Clopidogrel Bisulfate [Plavix (*)] 75 mg PO DAILY 04/18/19 [Last Taken Unknown] Dextrose Oral Gel [Glucose Gel (*)] 15 gm PO BID PRN 04/18/19 [Last Taken Unknown] Ergocalciferol [Vitamin D2 (*)] 50,000 unit PO FR 04/18/19 [Last Taken Unknown] Furosemide [Lasix 80 MG (*)] 80 mg PO DAILY14 04/18/19 [Last Taken Unknown] Furosemide [Lasix 80 MG (*)] 120 mg PO DAILY 04/18/19 [Last Taken Unknown] Glucagon,Human Recombinant [Glucagon Emergency Kit] 1 mg IJ AD PRN 04/18/19 [ Last Taken Unknown] Herbals/Supplements -Info Only 1 ea PO DAILY 04/18/19 [Last Taken Unknown] Insulin Glargine [Lantus] 3 unit SC DAILY 04/18/19 [Last Taken Unknown] Insulin Glargine [Lantus] 7 unit SC HS 04/18/19 [Last Taken Unknown] Insulin Lispro [Humalog] 0 unit SQ TIDMEAL 04/18/19 [Last Taken Unknown] Isosorbide Mononitrate [Isosorbide Mononitrate ER] 120 mg PO DAILY 04/18/19 [ Last Taken Unknown] LORazepam [Ativan (*)] 0.25 mg PO BID 04/18/19 [Last Taken Unknown] LORazepam [Ativan (*)] 0.5 mg PO DAILY PRN 04/18/19 [Last Taken Unknown] Levothyroxine [Synthroid 88 mcg (*)] 88 mcg PO DAILY06 04/18/19 [Last Taken Unknown] Lidocaine 5% [Lidocaine 5% Oint] 1 shoaib TP DAILY PRN 04/18/19 [Last Taken Unknown ] Magnesium Citrate [Magnesium Citrate 300 ml (*)] 148 ml PO DAILY PRN 04/18/19 [ Last Taken Unknown] Magnesium Hydroxide [Milk of Magnesia] 30 ml PO DAILY PRN 04/18/19 [Last Taken Unknown] Metoprolol Tartrate [Lopressor 25 mg (*)] 12.5 mg PO BID 04/18/19 [Last Taken Unknown] Multivitamins W-Minerals [Thera M Plus Tablet (*)] 1 each PO DAILY 04/18/19 [ Last Taken Unknown] Nitroglycerin [Nitrostat 0.4 mg (*)] 0.4 mg SL Q5M PRN 04/18/19 [Last Taken Unknown] Ondansetron HCl [Zofran] 4 mg PO Q6HRS PRN 04/18/19 [Last Taken Unknown] Oxymetazoline HCl [Afrin Nasal Forgan] 2 sprays EACHNARE MWF 04/18/19 [Last Taken Unknown] Pantoprazole Sodium [Protonix 40mg (*)] 40 mg PO BID 04/18/19 [Last Taken Unknown] Polyethylene Glycol 3350 [Miralax 17 gm (*)] 17 gm PO BID 04/18/19 [Last Taken Unknown] Polyethylene Glycol 3350 [Miralax 17 gm (*)] 17 gm PO DAILY PRN 04/18/19 [Last Taken Unknown] Potassium Cl [Klor-Con 20 meq (*)] 30 meq PO BID 04/18/19 [Last Taken Unknown] Sennosides [Senna Lax] 17.2 mg PO BID 04/18/19 [Last Taken Unknown] Simethicone [Gas Relief] 80 mg PO TID PRN 04/18/19 [Last Taken Unknown] Tamsulosin HCl [Flomax 0.4 MG (*)] 0.4 mg PO HS 04/18/19 [Last Taken Unknown] Tears/Dextran 70/Hypromellose [Natural Balance Tears (*)] 1 drop EACHEYE BID [Last Taken Unknown] Tears/Dextran 70/Hypromellose [Natural Balance Tears (*)] 1 drop EACHEYE QID PRN 04/18/19 [Last Taken Unknown] Venlafaxine Xr [Effexor Xr 75MG (*)] 225 mg PO DAILY 04/18/19 [Last Taken Unknown] morphINE SR [MS Contin/Oramorph SR 30 mg (*)] 30 mg PO BID 04/18/19 [Last Taken Unknown] oxyCODONE IR [Oxycodone Ir (*)] 5 mg PO QID 04/18/19 [Last Taken Unknown] traZODone [traZODONE 50MG (*)] 50 mg PO HS 04/18/19 [Last Taken Unknown] I have personally reviewed and updated: family history, medical history, social history, surgical history Past Medical History: 60 year history of type 1 diabetes mellitus, coronary artery disease as described above, peripheral vascular disease as described above, history of retinopathy related to type 1 diabetes, hyperlipoproteinemia, hyperparathyroidism, depression, chronic pain, history of a single seizure, chronic hypoxemia on 3 L nasal cannula, depression. - Surgical History Additional surgical history: Left BKA, right femoral popliteal bypass surgery, coronary artery disease with previous 3 vessel bypass surgery, cholecystectomy. - Family History Positive for: non-pertinent - Social History Smoking Status: Never smoked Alcohol Use: Occasionally (Patient reports having a glass of wine occasionally with dinner.) Drug Use: None Additional social history: She is a resident of [facility] where she has been for the last 4 years. She is wheelchair-bound in inactive at baseline. She uses no alcohol or drugs. She is with no children. She does have a sister who apparently is involved in her care. Cardiac History - Cardiac History Past Cardiac History: CAD, CABG Cardiac Risk Factors: lipidemia, diabetes mellitus, age > 65 Physical Exam Physical Exam: Temp Pulse Resp BP Pulse Ox 37.0 C 93 12 177/66 H 99 04/18/19 15:14 04/18/19 15:14 04/18/19 15:14 04/18/19 15:14 04/18/19 15:14 O2 (L/minute) 3 Constitutional: no apparent distress, appears nourished, not in pain Eyes: PERRL, anicteric sclera, EOMI Ears, Nose, Mouth, Throat: moist mucous membranes, hearing normal, ears appear normal, no oral mucosal ulcers Cardiovascular: regular rate and rhythym, systolic murmur (1/6 left sternal border), No edema Peripheral Pulses: 0: femoral (L) (Left BKA), 1+: femoral (R) (History of right fem-pop bypass), 2+: carotid (R), carotid (L) Respiratory: no respiratory distress, no rales or rhonchi, clear to auscultation Gastrointestinal: normoactive bowel sounds, soft, non-tender abdomen, no palpable masses Genitourinary: no bladder fullness, no bladder tenderness Skin: warm, normal color, no rashes or abrasions, no fluctuance, no induration, No mottled Musculoskeletal: full muscle strength, no muscle tenderness, normal joint ROM, no joint effusions Psychiatric: interacting appropriately, not anxious, not encephalopathic, thought process linear Lymph, Heme, Immunologic: no cervical LAD, no supraclavicular LAD Lab and Imaging 04/18/19 02:05 04/18/19 02:05 WBC 9.95 10^3/uL (3.80-9.50) H 04/18/19 02:05 RBC 3.98 10^6/uL (4.18-5.33) L 04/18/19 02:05 Hgb 10.4 g/dL (12.6-16.3) L 04/18/19 02:05 Hct 34.8 % (38.0-47.0) L 04/18/19 02:05 MCV 87.4 fL (81.5-99.8) 04/18/19 02:05 MCH 26.1 pg (27.9-34.1) L 04/18/19 02:05 MCHC 29.9 g/dL (32.4-36.7) L 04/18/19 02:05 RDW 14.5 % (11.5-15.2) 04/18/19 02:05 Plt Count 259 10^3/uL (150-400) 04/18/19 02:05 MPV 11.1 fL (8.7-11.7) 04/18/19 02:05 Neut % (Auto) 81.2 % (39.3-74.2) H 04/18/19 02:05 Lymph % (Auto) 9.3 % (15.0-45.0) L 04/18/19 02:05 [place] % (Auto) 5.3 % (4.5-13.0) 04/18/19 02:05 Eos % (Auto) 3.4 % (0.6-7.6) 04/18/19 02:05 Baso % (Auto) 0.4 % (0.3-1.7) 04/18/19 02:05 Nucleat RBC Rel Count 0.0 % (0.0-0.2) 04/18/19 02:05 Absolute Neuts (auto) 8.07 10^3/uL (1.70-6.50) H 04/18/19 02:05 Absolute Lymphs (auto) 0.93 10^3/uL (1.00-3.00) L 04/18/19 02:05 Absolute Monos (auto) 0.53 10^3/uL (0.30-0.80) 04/18/19 02:05 Absolute Eos (auto) 0.34 10^3/uL (0.03-0.40) 04/18/19 02:05 Absolute Basos (auto) 0.04 10^3/uL (0.02-0.10) 04/18/19 02:05 Absolute Nucleated RBC 0.00 10^3/uL (0-0.01) 04/18/19 02:05 Immature Gran % 0.4 % (0.0-1.1) 04/18/19 02:05 Immature Gran # 0.04 10^3/uL (0.00-0.10) 04/18/19 02:05 Sodium 139 mEq/L (135-145) 04/18/19 02:05 Potassium 4.9 mEq/L (3.5-5.2) 04/18/19 02:05 Chloride 97 mEq/L (97-110) 04/18/19 02:05 Carbon Dioxide 34 mEq/l (22-31) H 04/18/19 02:05 Anion Gap 8 mEq/L (6-14) 04/18/19 02:05 BUN 29 mg/dL (7-23) H 04/18/19 02:05 Creatinine 1.0 mg/dL (0.6-1.0) 04/18/19 02:05 Estimated GFR 55 04/18/19 02:05 Glucose 178 mg/dL (70-100) H 04/18/19 02:05 POC Glucose 345 mg/dL (70-100) H 04/18/19 11:48 Calcium 9.5 mg/dL (8.5-10.4) 04/18/19 02:05 Total Bilirubin 0.7 mg/dL (0.1-1.4) 04/18/19 02:05 Conjugated Bilirubin 0.1 mg/dL (0.0-0.5) 04/18/19 02:05 Unconjugated Bilirubin 0.6 mg/dL (0.0-1.1) 04/18/19 02:05 AST 29 IU/L (14-46) 04/18/19 02:05 ALT 34 IU/L (9-52) 04/18/19 02:05 Alkaline Phosphatase 132 IU/L (38-126) H 04/18/19 02:05 POC Troponin I 0.04 ng/mL (0.00-0.08) 04/18/19 02:22 Troponin I < 0.012 ng/mL (0.000-0.034) 04/18/19 14:23 NT-Pro-B Natriuret Pep 606 pg/mL (0-125) H 04/18/19 08:22 Total Protein 7.2 g/dL (6.3-8.2) 04/18/19 02:05 Albumin 4.1 g/dL (3.5-5.0) 04/18/19 02:05 Lipase 71 IU/L (23-300) 04/18/19 02:05 Visualized and Interpreted Chest x-ray results: Yes Chest X-ray Interpretation: no infiltrate Visualized and Interpreted EKG results: Yes EKG additional interpertation: Normal sinus rhythm without ST/T changes. Telemetry: Sinus rhythm. Echocardiogram: There is a full and separately dictated report in the chart. A/P Assessment: 1. Atypical chest discomfort. She presents with a 12 hr syndrome of bilateral temporal and jaw discomfort. This in and of itself is not that atypical however despite protracted symptoms that have been unrelenting her ECG and cardiac enzymes are negative. The differential diagnosis is broad. She does have fairly significant dyspepsia and recently has been treated with antibiotics with certainly could exacerbate this condition. Additionally, given her history of diabetes gastroparesis is on the differential diagnosis. There is no indication that this represents PE or dissection. Ischemia is, however, still on the differential. 2. CAD. Previous 3 vessel bypass surgery as described above. 3. Peripheral vascular disease. Previous left BKA and right fem popliteal bypass. 4. Type 1 diabetes mellitus for greater than 60 years. 5. Hyperlipidemia. 6. Chronic hypoxic respiratory failure on 3 L nasal cannula. Plan: 1. At the present time, I do not think that there is a clear indication to proceed with an invasive cardiovascular workup. 2. I would like her to undergo a Lexiscan myocardial perfusion imaging study in the morning. 3. I did increase her metoprolol XL from 12 in half to 25 mg daily. 4. We will plan to restart long-acting nitrates and diuretic therapy. 5. I have ordered a spot urine protein and creatinine light of her chronic lower extremity edema and diabetes. 6. We will plan to check hemoglobin A1c and lipids and optimize medical therapy to achieve secondary prevention guidelines. 7. We will continue dual anti-platelet therapy. 8. Further recommendations will be made pending her clinical course and results of the above testing.
[2019-04-18] MEDS ORDERED: PANTOPRAZOLE SODIUM 40 MG VIAL IVP SCH (16:30)
[2019-04-18] MEDS: CLINDAMYCIN 150 MG CAP PO SCH (17:21)
[2019-04-18] MEDS: FAMOTIDINE 20 MG/NACL 50 ML IV SCH (17:22)
[2019-04-18] MEDS ORDERED: INSULIN REGULAR HUMAN 100 UNIT/ML UNIT SC ONE (20:01)
[2019-04-18] MEDS: INSULIN GLARGINE 100 UNITS/ML UNIT SC SCH ×2 (20:23→20:31)
[2019-04-18] MEDS: ATORVASTATIN CALCIUM 40 MG TAB PO SCH (20:23)
[2019-04-18] MEDS: LORazepam 0.5 MG TAB PO SCH (20:24)
[2019-04-18] MEDS: morphINE SR 30 MG TAB PO SCH (20:25)
[2019-04-18] MEDS: POLYETHYLENE GLYCOL 3350 17 GM PKT PO SCH (20:25)
[2019-04-18] MEDS: METOPROLOL TARTRATE 25 MG TAB PO SCH (20:25)
[2019-04-18] MEDS: POTASSIUM CL 20 MEQ TAB PO SCH (20:26)
[2019-04-18] MEDS: traZODone 50 MG TAB PO SCH (20:30)
[2019-04-18] MEDS: SENNOSIDES 1 TAB PO SCH (20:30)
[2019-04-18] MEDS: TAMSULOSIN HCL 0.4 MG CAP PO SCH (20:30)
[2019-04-18] MEDS: TEARS/DEXTRAN 70/HYPROMELLOSE 15 ML OPHT.BTL EACHEYE SCH (20:33)
[2019-04-18] MEDS ORDERED: METOPROLOL TARTRATE 25 MG TAB PO SCH (21:00)
[2019-04-18] MEDS ORDERED: PANTOPRAZOLE SODIUM 40 MG TAB PO SCH (21:00)
[2019-04-19] MEDS: CLINDAMYCIN 150 MG CAP PO SCH ×3 (00:33→13:51)
[2019-04-19 04:48] LABS: PLATELET COUNT 248 10^3/uL (150-400)
[2019-04-19] MEDS: LEVOTHYROXINE 88 MCG TAB PO SCH ×2 (05:22→05:23)
[2019-04-19] MEDS: oxyCODONE IR 5 MG TAB PO SCH ×4 (06:08→21:16)
--- NOTE | 2019-04-19 07:24 | CPEKG ---
Test Reason : OPEN Blood Pressure : / mmHG Vent. Rate : 085 BPM Atrial Rate : 084 BPM P-R Int : 157 ms QRS Dur : 088 ms QT Int : 377 ms P-R-T Axes : 043 038 077 degrees QTc Int : 449 ms Sinus rhythm Low voltage, extremity leads Confirmed by Daphnie Luna ([id number]) on 04/19/2019 7:23:37 AM Referred By: Daphnie Luna Confirmed By:Daphnie Luna
[2019-04-19] MEDS: METOPROLOL TARTRATE 25 MG TAB PO SCH ×2 (08:51→21:17)
[2019-04-19] MEDS: POTASSIUM CL 20 MEQ TAB PO SCH ×2 (08:53→21:16)
[2019-04-19] MEDS: CLOPIDOGREL BISULFATE 75 MG TAB PO SCH (08:53)
[2019-04-19] MEDS: VENLAFAXINE XR 75 MG CAP PO SCH (08:53)
[2019-04-19] MEDS: SENNOSIDES 1 TAB PO SCH ×2 (08:55→21:16)
[2019-04-19] MEDS: ARIPiprazole 5 MG TAB PO SCH (08:55)
[2019-04-19] MEDS: FUROSEMIDE 80 MG TAB PO SCH (08:57)
[2019-04-19] MEDS: ASPIRIN 81 MG CHEWABLE TAB PO SCH (08:58)
[2019-04-19] MEDS: MULTIVITAMINS W-MINERALS 1 EACH TAB PO SCH (08:58)
[2019-04-19] MEDS: FAMOTIDINE 20 MG/NACL 50 ML IV SCH ×2 (08:59→21:13)
[2019-04-19] MEDS: INSULIN GLARGINE 100 UNITS/ML UNIT SC SCH ×2 (08:59→21:15)
[2019-04-19] MEDS ORDERED: ISOSORBIDE MONONITRATE 30 MG TAB.SR PO SCH (09:00)
[2019-04-19] MEDS: LORazepam 0.5 MG TAB PO SCH ×2 (09:08→21:16)
[2019-04-19] MEDS: morphINE SR 30 MG TAB PO SCH ×2 (09:08→21:16)
[2019-04-19] MEDS: ENOXAPARIN 40 MG/0.4 ML SYR SC SCH (09:10)
[2019-04-19] MEDS: INSULIN LISPRO 100 UNIT/ML SC SCH ×4 (09:10→21:23)
[2019-04-19] MEDS: ISOSORBIDE MONONITRATE 120 MG PO SCH (09:11)
[2019-04-19] MEDS: POLYETHYLENE GLYCOL 3350 17 GM PKT PO SCH ×2 (09:12→21:19)
[2019-04-19] MEDS: TEARS/DEXTRAN 70/HYPROMELLOSE 15 ML OPHT.BTL EACHEYE SCH ×2 (09:19→21:30)
[2019-04-19] MEDS ORDERED: REGADENOSON 0.4 MG/5 ML SYR IVP ONE (12:11)
--- NOTE | 2019-04-19 13:07 | HOSPPROG ---
Hospitalist Progress Note Assessment/Plan: 73-year-old female with past medical history significant for congenital heart disease, diastolic CHF, PVD, pulmonary hypertension, chronic hypoxic respiratory failure with O2 requirement 3 liters/minute, chronic pain, dm 1, HLD , CAD (previous stenting), depression, CKD who was admitted with chest pain, jaw pain, and congregation pain. She has a hx of CAD and reported that her current jaw and congregation symptoms are similar to her last MO. Work up thus far including trop and EKG have been unremarkable to ischemia. #Chest pain, Jaw and [place] Pain -cannot r/o angina/ischemia given her sx's are similar to previous MO. -Cards following -Zelda scan today. #GERD and Reflux -improving -cont PPI -Intolerable of Reglan -Some component of this may be due to the Clindamycin that she is taking for dental infection #Gastroparesis -Intolerable of Reglan #Dental Infection: for now continue with Clindamycin. May need to switch her abx #brittle DM 1: -home insulin -ISS -Hyperglycemia last night, hypoglycemia this morning. We discussed changing her insulin regimen today, but she does not want to. Reports long hx of labile blood glucose. Will monitor tonight #CHF-Diastolic per records -Very high outpatient Lasix requirement. -volume status is improved -will hold PM dose of Lasix today given elevated Cr #BECCA -will hold Lasix this afternoon. Repeat labs in a.m. #Chronic Respiratory Failure, at baseline which is 3 L 24/7 #HTN: -home meds # hypothyroidism, resume Synthroid # chronic pain continue Oxy and morphine per home dosing. # Anemia - previous iron studies suggesting anemia of chronic disease. Patient without any evidence of active bleeding. H&H is stable compared to 2016. PPX-Lovenox for DVT proph Cor status-full Dispo: keep overnight. Subjective: intermittent congregation pain. still with dispepsia, improving. no sob Objective: Vital Signs Temp Pulse Resp BP Pulse Ox 36.8 C 84 12 115/59 L 98 04/19/19 11:20 04/19/19 11:20 04/19/19 11:20 04/19/19 11:20 04/19/19 11:20 Laboratory Results 04/19/19 04:08 04/19/19 04:08 05/04/19/19 04/20/19 05:59 05:59 05:59 Intake Total 425 1070 Output Total 2450 250 Balance 425 -9680 -250 - Physical Exam Constitutional: no apparent distress Eyes: PERRL, EOMI Ears, Nose, Mouth, Throat: moist mucous membranes, hearing normal Cardiovascular: regular rate and rhythym Respiratory: no respiratory distress, reduced air movement Gastrointestinal: normoactive bowel sounds, soft, non-tender abdomen Skin: warm Neurologic: AAOx3 Psychiatric: interacting appropriately, not anxious, not encephalopathic Lymph, Heme, Immunologic: No petechiae ICD10 Worksheet Patient Problems: Problems Problem Status Onset CAD (coronary artery disease) Acute Chest pain Acute Diabetes Acute C. difficile diarrhea Acute 02/23/16 Hyperglycemia Acute Pneumonia of both lower lobes Acute
--- NOTE | 2019-04-19 13:13 | CPR ---
[f rep st] NONINVASIVE CARDIAC PROCEDURE REPORT DATE OF PROCEDURE: 04/19/2019 PROCEDURE: Lexiscan nuclear stress test. INDICATION: The patient is a 73-year-old female with a history of myocardial infarction, who present ed to the hospital with complaints of right-sided temporal, jaw, and neck discomfort as well as inter mittent chest pain, which felt similar to reflux. PROCEDURE IN DETAIL: Consent was obtained, and the patient was placed on continuous telemetry. Her resting EKG revealed sinus arrhythmia. She remained in normal sinus rhythm throughout the study. Th ere were no ST-T wave changes to suggest ischemia. She did complain of chest pain, shortness of karla th, and headache with the infusion, but again remained in normal sinus rhythm. Her blood pressure wa s 122/64 at rest and remained stable throughout study. Her oxygen level remained at 99%. She was gi laurie caffeine in the recovery phase with improvement, but not resolution in her symptoms. PLAN: Await nuclear images. /[id number]/MODL
[2019-04-19] MEDS ORDERED: FUROSEMIDE 40 MG TAB PO SCH ×2 (15:00)
--- NOTE | 2019-04-19 16:20 | ASMTCMCOM ---
CM Note CM Note Notes: PT and OT recommend return to SNF for rehab. CM put in referral for return to [facility]. CM will continue to follow. CM D/C plan: Return to [facility] Date Signed: 04/19/2019 04:19 PM Electronically Signed By:Georgina Wren.HENRY
--- NOTE | 2019-04-19 16:59 | SOAPPROG ---
DEEP Progress Note Assessment/Plan: Assessment: 1. Coronary artery disease. She has had 3 vessel bypass surgery in the past. Apparently, this was performed on the heels of a myocardial infarction. Her ejection fraction is normal by echocardiography. Her recent stress test was low risk and the fact that it demonstrated findings consistent with previous infarct and no ischemia. 2. Atypical chest pain. This has now resolved. She has not had any recurrence since yesterday. Despite 12 hr of chest discomfort she did not manifest any objective findings to suggest myocardial injury. 3. Type 1 diabetes mellitus. This is long-standing dating back greater than 60 years. Her hemoglobin A1c is 9.1% indicating poor control. 4. Hyperlipidemia. On intermediate dose statin therapy her lipids are under good control. 5. PVD. This appears to be quiescent. Plan: 1. We will plan to continue her current medications as prescribed. 2. I will defer to the hospitalist service regarding optimization of her diabetes. 3. At this point, we will sign off. She can follow-up with her outpatient music professor. 04/19/19 16:58 Subjective: She is doing well today. She has not had any further symptoms of jaw or adventist pain. Occasionally she has been getting some mild reflux. She underwent a Lexiscan MPI today without complications. That study indicated a fixed anterolateral defect that was noted to be small. Objective: Vital Signs Temp Pulse Resp BP Pulse Ox 36.9 C 83 12 115/57 L 99 04/19/19 15:13 04/19/19 15:13 04/19/19 15:13 04/19/19 15:13 04/19/19 15:13 Laboratory Results 04/19/19 04:08 04/19/19 04:08 04/18/19 04/19/19 04/20/19 05:59 05:59 05:59 Intake Total 425 1070 Output Total 2450 250 Balance 425 -1380 -250 Physical Exam - Physical Exam General Appearance: WD/WN, no apparent distress Neck: non-tender, full range of motion Respiratory: lungs clear Cardiac/Chest: regular rate, rhythm, No gallop, No JVD, No systolic murmur Peripheral Pulses: 2+: carotid (R), carotid (L) ICD10 Worksheet Patient Problems: Problems Problem Status Onset CAD (coronary artery disease) Acute Chest pain Acute Diabetes Acute C. difficile diarrhea Acute 02/23/16 Hyperglycemia Acute Pneumonia of both lower lobes Acute
[2019-04-19] MEDS: ATORVASTATIN CALCIUM 40 MG TAB PO SCH (21:16)
[2019-04-19] MEDS: TAMSULOSIN HCL 0.4 MG CAP PO SCH (21:32)
[2019-04-19] MEDS: traZODone 50 MG TAB PO SCH (21:32)
[2019-04-20] MEDS: LEVOTHYROXINE 88 MCG TAB PO SCH (05:31)
[2019-04-20] MEDS: oxyCODONE IR 5 MG TAB PO SCH ×4 (05:32→21:53)
[2019-04-20] MEDS ORDERED: OXYMETAZOLINE 30 ML NASAL SPRAY EACHNARE SCH (08:00)
[2019-04-20] MEDS: TEARS/DEXTRAN 70/HYPROMELLOSE 15 ML OPHT.BTL EACHEYE SCH ×2 (08:11→21:55)
[2019-04-20] MEDS: INSULIN LISPRO 100 UNIT/ML SC SCH ×4 (08:54→21:54)
[2019-04-20] MEDS: FAMOTIDINE 20 MG/NACL 50 ML IV SCH (08:57)
[2019-04-20] MEDS: ENOXAPARIN 40 MG/0.4 ML SYR SC SCH (09:00)
[2019-04-20] MEDS: POLYETHYLENE GLYCOL 3350 17 GM PKT PO SCH ×2 (09:01→21:54)
[2019-04-20] MEDS: ARIPiprazole 5 MG TAB PO SCH (09:05)
[2019-04-20] MEDS: ASPIRIN 81 MG CHEWABLE TAB PO SCH (09:11)
[2019-04-20] MEDS: CLOPIDOGREL BISULFATE 75 MG TAB PO SCH (09:11)
[2019-04-20] MEDS: LORazepam 0.5 MG TAB PO SCH ×2 (09:12→21:52)
[2019-04-20] MEDS: ISOSORBIDE MONONITRATE 120 MG PO SCH (09:12)
[2019-04-20] MEDS: morphINE SR 30 MG TAB PO SCH ×2 (09:13→21:52)
[2019-04-20] MEDS: METOPROLOL TARTRATE 25 MG TAB PO SCH ×2 (09:13→21:53)
[2019-04-20] MEDS: MULTIVITAMINS W-MINERALS 1 EACH TAB PO SCH ×2 (09:14→11:16)
[2019-04-20] MEDS: SENNOSIDES 1 TAB PO SCH ×2 (09:15→21:52)
[2019-04-20] MEDS: INSULIN GLARGINE 100 UNITS/ML UNIT SC SCH ×2 (09:56→21:54)
[2019-04-20] MEDS: POTASSIUM CL 20 MEQ TAB PO SCH ×2 (11:14→21:52)
[2019-04-20] MEDS: VENLAFAXINE XR 75 MG CAP PO SCH (11:18)
[2019-04-20] MEDS: FUROSEMIDE 80 MG TAB PO SCH ×3 (11:23→14:14)
--- NOTE | 2019-04-20 13:56 | HOSPPROG ---
Hospitalist Progress Note Assessment/Plan: 73-year-old female with past medical history significant for congenital heart disease, diastolic CHF, PVD, pulmonary hypertension, chronic hypoxic respiratory failure with O2 requirement 3 liters/minute, chronic pain, dm 1, HLD , CAD (previous stenting), depression, CKD who was admitted with chest pain, jaw pain, and yazidi pain. She has a hx of CAD and reported that her current jaw and yazidi symptoms are similar to her last CT. Work up negative for ischemia including trops, EKG, and Zelda scan. Normal LVEF #Chest pain, Jaw and Denominational Pain in a patient with hx of 3 vessel Bypass -no e/o ischemia -no recurrent cp #GERD and Reflux -PPI/H2 zaid -Intolerable of Reglan -Some component of this may be due to the Clindamycin that she is taking for dental infection #Gastroparesis -Intolerable of Reglan #Dental Infection: Clindamycin #brittle DM 1: A1C 9.3 -home insulin -ISS -does not want change to her current regimen #CHF-Diastolic per records -PM dose held due to worsening Cr, but now with volume overload. Will restart BID dosing #BECCA vs CRF. She reports stage III. unclear baseline? -monitor closely given restart of diuretics -we are getting records from [place] #Chronic Respiratory Failure, at baseline which is 3 L 13/06 #HTN: -home meds # hypothyroidism, resume Synthroid # chronic pain continue Oxy and morphine per home dosing. # Anemia - previous iron studies suggesting anemia of chronic disease. Patient without any evidence of active bleeding. H&H is stable compared to 2016. PPX-Lovenox for DVT proph Cor status-full Dispo: keep overnight. Subjective: decreased urine output. no cp. some SOB Objective: Vital Signs Temp Pulse Resp BP Pulse Ox 36.4 C 77 18 124/68 H 98 04/20/19 12:00 04/20/19 12:00 04/20/19 12:00 04/20/19 12:00 04/20/19 12:00 Laboratory Results 04/19/19 04:08 04/19/19 04/20/19 04/21/19 05:59 05:59 05:59 Intake Total 1070 660 Output Total 2450 450 500 Balance -1380 210 -500 - Physical Exam Constitutional: chronically ill appearing Eyes: PERRL Ears, Nose, Mouth, Throat: moist mucous membranes Cardiovascular: regular rate and rhythym, edema Respiratory: no respiratory distress, reduced air movement Gastrointestinal: normoactive bowel sounds, soft, non-tender abdomen Skin: warm Neurologic: AAOx3 Psychiatric: interacting appropriately, not anxious, not encephalopathic Lymph, Heme, Immunologic: No petechiae ICD10 Worksheet Patient Problems: Problems Problem Status Onset CAD (coronary artery disease) Acute Chest pain Acute Diabetes Acute C. difficile diarrhea Acute 02/23/16 Hyperglycemia Acute Pneumonia of both lower lobes Acute
--- NOTE | 2019-04-20 16:14 | ASMTCMCOM ---
CM Note CM Note Notes: Plan is for pt to return to [facility]. CM submit referral for [facility] to Approve of SNF stay. Tal says they may be able to accept her without Naif Auth but we needed to initiate it. Likely dc tomorrow to [facility]. Plan: [facility] Date Signed: 04/20/2019 04:13 PM Electronically Signed By:TIFFANY Boles
[2019-04-20] MEDS: TAMSULOSIN HCL 0.4 MG CAP PO SCH (21:51)
[2019-04-20] MEDS: ATORVASTATIN CALCIUM 40 MG TAB PO SCH (21:52)
[2019-04-20] MEDS: traZODone 50 MG TAB PO SCH (21:53)
[2019-04-20] MEDS: PANTOPRAZOLE SODIUM 40 MG TAB PO SCH (21:53)
[2019-04-21] MEDS: LEVOTHYROXINE 88 MCG TAB PO SCH (06:38)
[2019-04-21] MEDS: oxyCODONE IR 5 MG TAB PO SCH ×2 (06:38→12:17)
--- NOTE | 2019-04-21 06:55 | PDMN ---
Medical Necessity Medical necessity: Change to inpt as of 04/20/19, meets inpt criteria per MD order and MCG M-190, Heart Failure, A-2 days, inpt indicated for volume overload w/SOB (diuretic held last nt due to worsening creatinine), potassium of 5.5 and decreased UOP, further monitoring needed w/restart of diuretics. CXR shows bilateral infiltrates in lower lobes slightly increased from prior study. Pt initially admitted as OBS w/jaw and religion pain- symptoms similar to when she had RI, work-up neg for ischemia, upgraded to inpt for CHF/worsening renal function. PMHx significant for congenital heart disease, diastolic CHF, PVD, pulm HTN, CHRF w/baseline requirement of 3L O2, chronic pain, DM , RI, CAD w/ stenting, HLD, and anemia. Est LOS>2MN for ongoing management of above.
[2019-04-21] MEDS ORDERED: FAMOTIDINE 20 MG TAB PO SCH (09:00)
[2019-04-21] MEDS: FUROSEMIDE 80 MG TAB PO SCH (10:27)
[2019-04-21] MEDS: PANTOPRAZOLE SODIUM 40 MG TAB PO SCH (10:28)
[2019-04-21] MEDS: VENLAFAXINE XR 75 MG CAP PO SCH (10:30)
[2019-04-21] MEDS: ASPIRIN 81 MG CHEWABLE TAB PO SCH (10:31)
[2019-04-21] MEDS: ARIPiprazole 5 MG TAB PO SCH (10:31)
[2019-04-21] MEDS: SENNOSIDES 1 TAB PO SCH (10:32)
[2019-04-21] MEDS: METOPROLOL TARTRATE 25 MG TAB PO SCH (10:32)
[2019-04-21] MEDS: CLOPIDOGREL BISULFATE 75 MG TAB PO SCH (10:33)
[2019-04-21] MEDS: LORazepam 0.5 MG TAB PO SCH (10:34)
[2019-04-21] MEDS: morphINE SR 30 MG TAB PO SCH (10:35)
[2019-04-21] MEDS: POTASSIUM CL 20 MEQ TAB PO SCH (10:35)
[2019-04-21] MEDS: ENOXAPARIN 40 MG/0.4 ML SYR SC SCH (10:37)
[2019-04-21] MEDS: INSULIN GLARGINE 100 UNITS/ML UNIT SC SCH (10:41)
[2019-04-21] MEDS: POLYETHYLENE GLYCOL 3350 17 GM PKT PO SCH (11:06)
[2019-04-21] MEDS: INSULIN LISPRO 100 UNIT/ML SC SCH ×2 (11:06→12:49)
[2019-04-21] MEDS: ISOSORBIDE MONONITRATE 120 MG PO SCH (11:06)
[2019-04-21 11:08] VITALS: BP 134/64
--- NOTE | 2019-04-21 12:09 | PDIAF ---
- Diagnosis Diagnosis: Diabetes, BECCA Code Status: Full Code - Medication Management Discharge Medications: electronically signed and located in the Home Medication List. - Orders Isolation Type: None Diet Recommendation: ADA 1800 consistent carb Diet Texture: Regular Texture Diet, Thin Liquids, Meds Whole in Puree Additional Instructions: Activity: As tolerated F/U: with PCP next week Please make a f/u appt with your dentist as you missed your previous one - Labs/Radiology BMP Date: 04/23/19 (results to PCP) - Follow Up Care Current Providers and Referrals: CHINEDU OCHOA [Other] - As per Instructions
--- NOTE | 2019-04-21 12:13 | PDDCSUM ---
Discharge Summary Discharge Summary: 73-year-old female with past medical history significant for congenital heart disease, diastolic CHF, PVD, pulmonary hypertension, chronic hypoxic respiratory failure with O2 requirement 3 liters/minute, chronic pain, dm 1, HLD , CAD (previous stenting), depression, CKD who was admitted with chest pain, jaw pain, and protestant pain. She has a hx of CAD and reported that her current jaw and protestant symptoms are similar to her last [place]. She was admitted. Work up negative for ischemia including trops, EKG, and Zelda scan. Normal LVEF. She had resolution of her sx's Diuretics were restarted. Cr increased and this require additional hospitalization. This is now better. DDX: #Chest pain, Jaw and [place] Pain in a patient with hx of 3 vessel Bypass -no e/o ischemia -no recurrent cp #GERD and Reflux -PPI/H2 zaid -Intolerable of Reglan -Some component of this may be due to the Clindamycin that she is taking for dental infection #Gastroparesis -Intolerable of Reglan #Dental Infection: Clindamycin #brittle DM 1: A1C 9.3 -home insulin -ISS -does not want change to her current regimen #CHF-Diastolic per records -On Lasix 80mg PO BID at discharge. This is a change from admission meds. #BECCA vs CRF. She reports stage III. unclear baseline? -stable and improving. Will need repeat BMP next week #Chronic Respiratory Failure, at baseline which is 3 L 24/ #HTN: -home meds # hypothyroidism, resume Synthroid # chronic pain continue Oxy and morphine per home dosing. # Anemia - previous iron studies suggesting anemia of chronic disease. Patient without any evidence of active bleeding. H&H is stable compared to 2016. Exam: NAD AAOX3 RRR CTA B MEDS: SEE MED REC F/U: WITH PCP IN ONE WEEK TOTAL TIME SPENT ON D/C IS 35 MINS.
[2019-04-21] MEDS: TEARS/DEXTRAN 70/HYPROMELLOSE 15 ML OPHT.BTL EACHEYE SCH (12:18)
--- NOTE | 2019-04-21 13:19 | ASDISCHSUM ---
Discharge Information Plan Status:SNF Medically Cleared to Leave: Discharge Date: D/C Disposition:Retirement Facility [facility] D/C Disposition:Retirement Facility Projected Discharge Date:04/21/2019 11:00 AM Transportation at D/C: Discharge Delay Reason: Follow-Up Date:04/21/2019 11:00 AM Discharge Slot: Final Diagnosis: Placement Information Referral Type:*Jail/SNF Referral ID:[id number] Provider Name:[facility] Address 1:[address] Address 2: City:[place] Selection Factors: State:[place] Referral Type:*Jail/SNF Referral ID:[id number] Provider Name: Address 1: Phone Number: Address 2: Fax Number: City: Selection Factors: State: Patient Contact Information Contact Name:RUFINA Relationship:Sister Address:[address] [place] [address] City:[facility] Phone: State/Zip Code:[place] [address] Email: Financial Information Financial Class:Medicare Advantage Plans Primary Plan Desc:[facility] MEDICARE ADVANTAGE OUTPAT Primary Plan Number:[id number] Secondary Plan Desc: Secondary Plan Number: Assessment Information LACE LACE Comorbidities - select Answers: Congestive heart failure all that apply Coronary Artery Disease Diabetes (uncontrolled or controlled) Mild liver or renal disease Opioid dependence / Chronic pain Peripheral vascular disease Other Notes: HLD # of Emergency department Answers: 1-2 visits in the last 6 months Social determinants Answers: Mental health diagnosis (anxiety, depression, pers onality disorders, etc.) Score: 17 Date Signed: 04/18/2019 02:06 PM Electronically Signed By:Bekah Valdivia [facility] Initial CM Assessment Living Arrangements What is your living Answers: Caregiver with Another arrangement? Who do you live with? Type Of Residence What kind of residence do Answers: Retirement Facility you live in? Type of Residence Facility Name Notes: [facility] Stairs in Home Answers: No Environment Case Management Evaluation Functional: ADL / IADL Answers: Mobility Issues Performance Deficits Due to: Discharge Plan Comments Coordination Status Comments Notes: Pt was admitted through the ED this morning for chest pain. She has a history of CAD and leg amputation. She describes a burning in her throat and chest "similar to heartburn". She has a dental infection for which she is taking antibiotics. CM met with pt in her room today. She lives at [facility]. CM spoke with Tal there. Further testing to be completed. Therapies are pending. CM D/C plan: TBD, likely return to [facility] Date Signed: 04/18/2019 02:17 PM Electronically Signed By:Georgina Wren.HENRY JASIEL CM Progress Note CM Note CM Note Notes: PT and OT recommend return to SNF for rehab. CM put in referral for return to [facility]. CM will continue to follow. ANH D/C plan: Return to [facility] Date Signed: 04/19/2019 04:19 PM Electronically Signed By:Georgina Wren.HENRY JASIEL CM Progress Note CM Note CM Note Notes: Plan is for pt to return to [facility]. CM submit referral for [facility] to Approve of SNF stay. Tal says they may be able to accept her without Naif Gomes but we needed to initiate it. Likely dc tomorrow to [facility]. Plan: [facility] Date Signed: 04/20/2019 04:13 PM Electronically Signed By:TIFFANY Boles Case Management Discharge Plan Note Case Management Discharge Discharge Order Complete? Answers: Yes Patient to Obtain Answers: Other Notes: [facility] Medications Transportation Arranged Answers: Other Notes: [facility] Transport will Pick (Date 04/21/2019 01:00 AM & Time) Faxed Final Orders Answers: Yes Notes: [facility] Discharge Comments Notes: Pt is being discharged to [facility]. [facility] is transporting pt at 1pm. [facility] is bringing pt a dress for her to wear out of the hospital. RN received phone number to give report. Intervention Information
== END 2019-04-21 14:48 | DRG 313 ==
LOC: EDUNIT# → INTOOBSV 04:19 → F2W 05:24 → OBSVTOIN 04-20 17:57
PROVIDERS: ADMIT Family Medicine; ATTEND Family Medicine
DX: R07.89 Other chest pain (principal); N17.9 Acute kidney failure, unspecified; J96.11 Chronic respiratory failure with hypoxia; I13.0 Hypertensive heart and chronic kidney disease with heart failure and stage 1 through stage 4 chronic kidney disease, or unspecified chronic kidney disease; I50.32 Chronic diastolic (congestive) heart failure; N18.3 Chronic kidney disease, stage 3 (moderate); K21.9 Gastro-esophageal reflux disease without esophagitis; E10.43 Type 1 diabetes mellitus with diabetic autonomic (poly)neuropathy; K31.84 Gastroparesis; I27.20 Pulmonary hypertension, unspecified; G89.29 Other chronic pain; E78.5 Hyperlipidemia, unspecified; I25.10 Atherosclerotic heart disease of native coronary artery without angina pectoris; F31.9 Bipolar disorder, unspecified; I25.2 Old myocardial infarction; D64.9 Anemia, unspecified; E03.9 Hypothyroidism, unspecified; E21.3 Hyperparathyroidism, unspecified; Z99.81 Dependence on supplemental oxygen; Z95.1 Presence of aortocoronary bypass graft; Z95.5 Presence of coronary angioplasty implant and graft; Z79.01 Long term (current) use of anticoagulants; Z99.3 Dependence on wheelchair; Z89.512 Acquired absence of left leg below knee
CPT/HCPCS: 82947-QW; 84484-ER; 92610-GN; 96374; 97110-GO; 97163-GP; 97165-GO; 97530-GO; 97530-GP; 97535-GO; A9500; G0378; J1650; J1815; J1940; J2270; J2785